=== PATIENT | male | born 1965 | race Caucasian/White ===

== ENCOUNTER 2021-07-30 15:54 | Emergency (ER) | payer BC ==
[2021-07-30] MEDS ORDERED: Zemuron 100 MG/10 ML IV ONE (16:05)
[2021-07-30] MEDS ORDERED: Amidate 20 MG/10 ML IV ONE (16:05)
[2021-07-30] MEDS ORDERED: SUBLIMAZE 100 MCG/2 ML IV ONE (16:05)
[2021-07-30] MEDS ORDERED: VERSED 5 MG/5 ML ONE (16:06)
[2021-07-30] MEDS ORDERED: Sodium Chloride 0.9% 1000 ML 1,000 ML ONE (16:07)
[2021-07-30] MEDS ORDERED: VERSED 5 MG/5 ML IV ONE (16:12)
[2021-07-30] MEDS ORDERED: Versed 50 MG/ 10 Ml MDV*** 50 MG in Sodium Chloride 0.9% 250 ML 240 ML IV PRN (16:13)
[2021-07-30 16:23] VITALS: O2SAT 98
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
[2021-07-30 16:29] VITALS: BP 128/80; PULSE 83
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
--- NOTE | 2021-07-30 19:53 | XRAY ---
Indication: Endotracheal tube placement. Comparison: None Portable chest demonstrates endotracheal tube tip 3 cm above jillian. Lungs inflated and clear. Heart not enlarged. Bony thorax intact with mild osteopenia and degenerative changes.
== END 2021-07-30 16:47 | disposition short-term general hospital (02) ==
LOC: ED 15:54
DX: S02.40FA Zygomatic fracture, left side, initial encounter for closed fracture (principal); S02.40CA Maxillary fracture, right side, initial encounter for closed fracture; S02.40DA Maxillary fracture, left side, initial encounter for closed fracture; S02.19XA Other fracture of base of skull, initial encounter for closed fracture; S02.841A Fracture of lateral orbital wall, right side, initial encounter for closed fracture; S01.01XA Laceration without foreign body of scalp, initial encounter; S06.9X9A Unspecified intracranial injury with loss of consciousness of unspecified duration, initial encounter; R40.2432 Glasgow coma scale score 3-8, at arrival to emergency department; V20.0XXA Motorcycle driver injured in collision with pedestrian or animal in nontraffic accident, initial encounter; Y92.821 Forest as the place of occurrence of the external cause
CPT/HCPCS: 36000; 51702; 70450; 71045; 94799; 96374; 99285; 99291; J2250; J3010

== ENCOUNTER 2022-05-18 11:20 | Observation (INO) | payer BC ==
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
[2022-05-18] MEDS ORDERED: Sodium Chloride 0.9% 1000 ML 1,000 ML IV STA (11:52)
[2022-05-18] MEDS ORDERED: Sodium Chloride 0.9% 1000 ML 1,000 ML ONE (11:58)
--- NOTE | 2022-05-18 12:28 | XRAY ---
Indication: Cough. Comparison: July 30, 2021 Portable chest now hyperinflated and remains clear. Heart not enlarged. Bony thorax intact again with osteopenia and mild degenerative changes. No acute findings.
[2022-05-18 12:35] LABS: Absolute Neutrophil Ct (ANC) 13.08 x10^3/uL (1.4-6.9); BASOPHIL % 0.2 % (0.0-0.4); Basophil (Absolute #) 0.03 x10^3/uL (0-0.4); Eosinophil (Absolute #) 0 x10^3/uL (0-0.5); Hemoglobin 13.6 g/dL (12.5-18.0); IMMATURE GRAN # 0.06 x10^3u/L (0.00-0.03); IMMATURE GRAN % 0.4 % (0.00-0.4); Lymphocyte (Absolute #) 1.17 x10^3/uL (1.0-4.6); Lymphocytes % 7.7 % (24.0-44.0); Mean Cell Volume 91.1 fL (78-100); Mean Corpuscular Hemoglobin 31.8 pg (26-32); Mean Corpuscular Hgb Concent. 34.9 g/dL (32-36); Mean Platelet Volume 10.7 fL (7.5-11.0); Monocyte (Absolute #) 0.84 x10^3/uL (0.0-1.3); Monocytes % 5.5 % (0.0-12.0); Neutrophil % 86.2 % (36.0-66.0); Platelet Count 256 x10^3/uL (150-450); Red Blood Count 4.28 x10^6/uL (4.1-5.6); Red Cell Distribution Width 11.7 % (11.5-14.0); White Blood Count 15.2 x10^3/uL (4.0-10.5)
[2022-05-18 12:53] LABS: ALBUMIN 3.9 g/dL (3.5-5.0); ALKALINE PHOSPHATASE 77 U/L (38-126); ANION GAP 11.1 MEQ/L (5-15); BLOOD UREA NITROGEN 23 mg/dL (9-20); CHLORIDE 90 mmol/L (98-107); Calcium 8.3 mg/dL (8.4-10.2); Carbon Dioxide 27 mmol/L (22-30); Creatinine 1 0.96 mg/dL (0.66-1.25); EST GLOMERULAR FILTRATION RATE > 60.0 ML/MIN; Glucose 112 mg/dL (74-106); Potassium 4.4 mmol/L (3.5-5.1); SGOT/AST 31 U/L (17-59); SGPT/ALT 27 U/L (0-50); SODIUM 124 mmol/L (137-145); Total Protein 7.5 g/dL (6.3-8.2)
[2022-05-18 13:10] LABS: INFLUENZA A NEGATIVE (NEGATIVE); INFLUENZA B NEGATIVE (NEGATIVE); RESPIRATORY SYNCTIAL VIRUS NEGATIVE (Negative); SARS-CoV-2 Xpert Express NEGATIVE (NEGATIVE)
[2022-05-18 13:15] LABS: Appearance Cloudy (Clear); Bacteria None Seen /HPF (None Seen); Bilirubin Small (Negative); Blood Negative (Negative); Glucose, Urine Negative (Negative); Ketones Trace (Negative); Leukocyte Esterase Negative (Negative); Nitrite Negative (Negative); Protein,Urine Dip 300 (Negative); Specific Gravity >=1.030 (1.005-1.030)
[2022-05-18 13:17] LABS: Epithelial Cells Many /HPF (None Seen)
[2022-05-18 13:18] LABS: ADD URINE CULTURE? NO (NO)
[2022-05-18 13:57] LABS: POTASSIUM, URINE RANDOM 77.8 mmol/L
[2022-05-18] MEDS ORDERED: Zofran 4 MG/2 ML VIAL IV PRN (14:36)
[2022-05-18] MEDS ORDERED: TYLENOL 325 MG PO PRN (14:36)
[2022-05-18] MEDS: Ativan 1 MG PO PRN (20:34)
[2022-05-19 05:49] LABS: Absolute Neutrophil Ct (ANC) 10.13 x10^3/uL (1.4-6.9); BASOPHIL % 0.2 % (0.0-0.4); Basophil (Absolute #) 0.02 x10^3/uL (0-0.4); Eosinophil % 0.1 % (0.00-5.0); Eosinophil (Absolute #) 0.01 x10^3/uL (0-0.5); Hematocrit 35.4 % (42-50); Hemoglobin 12.3 g/dL (12.5-18.0); IMMATURE GRAN # 0.05 x10^3u/L (0.00-0.03); IMMATURE GRAN % 0.4 % (0.00-0.4); Lymphocyte (Absolute #) 1.12 x10^3/uL (1.0-4.6); Lymphocytes % 9.2 % (24.0-44.0); Mean Cell Volume 90.1 fL (78-100); Mean Corpuscular Hemoglobin 31.3 pg (26-32); Mean Corpuscular Hgb Concent. 34.7 g/dL (32-36); Mean Platelet Volume 10.9 fL (7.5-11.0); Monocyte (Absolute #) 0.82 x10^3/uL (0.0-1.3); Monocytes % 6.7 % (0.0-12.0); Neutrophil % 83.4 % (36.0-66.0); Platelet Count 252 x10^3/uL (150-450); Red Blood Count 3.93 x10^6/uL (4.1-5.6); Red Cell Distribution Width 11.9 % (11.5-14.0); White Blood Count 12.2 x10^3/uL (4.0-10.5)
[2022-05-19 06:13] LABS: ALBUMIN 3.3 g/dL (3.5-5.0); ALKALINE PHOSPHATASE 68 U/L (38-126); ANION GAP 7.3 MEQ/L (5-15); BLOOD UREA NITROGEN 9 mg/dL (9-20); CHLORIDE 99 mmol/L (98-107); Calcium 8.1 mg/dL (8.4-10.2); Carbon Dioxide 27 mmol/L (22-30); EST GLOMERULAR FILTRATION RATE > 60.0 ML/MIN; Glucose 102 mg/dL (74-106); Potassium 4.2 mmol/L (3.5-5.1); SGOT/AST 21 U/L (17-59); SGPT/ALT 22 U/L (0-50); SODIUM 129 mmol/L (137-145); Total Protein 6.6 g/dL (6.3-8.2)
[2022-05-19] MEDS: Sodium Chloride 0.9% 1000 ML 1,000 ML IV SCH ×2 (07:30→08:35)
[2022-05-19] MEDS: ROCEPHIN 1 Gm-D5w 50 ml Bag** 1 G/50 ML IVPB IV SCH (08:35)
[2022-05-19] MEDS: Ativan 1 MG PO PRN (09:00)
[2022-05-19] MEDS ORDERED: MEDICATION INTERVENTION MC SCH (14:00)
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
--- NOTE | 2022-05-19 14:39 | PCM.NOTE ---
Date and Time: 05/19/221437 Subjective Assessment: doing better - Review of Systems Constitutional: Weakness, No Fever, No Chills Eyes: No Symptoms Ears, Nose, & Throat: No Symptoms Respiratory: No Cough, No Short Of Breath Cardiac: No Chest Pain, No Edema, No Syncope Abdominal/Gastrointestinal: No Abdominal Pain, No Nausea, No Vomiting, No Diarrhea Genitourinary Symptoms: No Dysuria Musculoskeletal: No Back Pain, No Neck Pain Skin: No Rash Neurological: No Dizziness, No Focal Weakness, No Sensory Changes Psychological: No Symptoms Endocrine: No Symptoms Hematologic/Lymphatic: No Symptoms Immunological/Allergic: No Symptoms Objective Exam General Appearance: no apparent distress, alert Neurologic Exam: alert, oriented x 3, cooperative, normal mood/affect, nml cerebellar function, sensation nml, No motor deficits Skin Exam: normal color, warm, dry Eye Exam: PERRL, EOMI, eyes nml inspection Ears, Nose, Throat Exam: normal ENT inspection, pharynx normal, moist mucous membranes Neck Exam: normal inspection, non-tender, supple, full range of motion Respiratory Exam: normal breath sounds, lungs clear, No respiratory distress Cardiovascular Exam: regular rate/rhythm, normal heart sounds Gastrointestinal/Abdomen Exam: soft, No tenderness, No mass Extremity Exam: normal inspection, normal range of motion Back Exam: normal inspection, normal range of motion, No CVA tenderness, No vertebral tenderness Male Genitalia Exam: deferred Rectal Exam: deferred OBJECTIVE DATA Vital Signs: Vital Signs - 24 hr Temp Pulse Resp BP Pulse Ox 05/19/22 14:23 100 H 14 99 05/19/22 12:00 16 05/19/22 11:39 97.9 F 87 16 100/55 95 05/19/22 08:00 99.5 F 85 16 107/61 95 05/19/22 07:57 16 05/19/22 04:00 99.1 F 87 16 96/55 97 05/19/22 00:00 98.5 F 98 H 18 144/71 97 05/18/22 20:00 100.2 F 91 H 17 108/68 96 05/18/22 14:49 98.7 F 84 16 111/60 96 Pain Assessment - Last Documented Pain Intensity 0 Intake and Output: Intake & Output 05/17/22 05/18/22 05/19/22 05/20/22 11:59 11:59 11:59 11:59 Intake Total 1442 360 Output Total 1650 Balance -208 360 Weight 53.977 kg 52.6 kg Lab Results: Lab Results-Last 24 Hours 05/19/22 05/19/22 Range/Units 05:04 05:04 WBC 12.2 H (4.0-10.5) x10^3/uL RBC 3.93 L (4.1-5.6) x10^6/uL Hgb 12.3 L (12.5-18.0) g/dL Hct 35.4 L (42-50) % MCV 90.1 (78-100) fL MCH 31.3 (26-32) pg MCHC 34.7 (32-36) g/dL RDW 11.9 (11.5-14.0) % Plt Count 252 (150-450) x10^3/uL MPV 10.9 (7.5-11.0) fL Gran % 83.4 H (36.0-66.0) % Immature Gran % (Auto) 0.4 (0.00-0.4) % Nucleat RBC Rel Count 0.0 (0.00-0.1) % Eos # (Auto) 0.01 (0-0.5) x10^3/uL Immature Gran # (Auto) 0.05 H (0.00-0.03) x10^3u/L Absolute Lymphs (auto) 1.12 (1.0-4.6) x10^3/uL Absolute Monos (auto) 0.82 (0.0-1.3) x10^3/uL Absolute Nucleated RBC 0.00 (0.00-0.01) x10^3u/L Lymphocytes % 9.2 L (24.0-44.0) % Monocytes % 6.7 (0.0-12.0) % Eosinophils % 0.1 (0.00-5.0) % Basophils % 0.2 (0.0-0.4) % Absolute Granulocytes 10.13 H (1.4-6.9) x10^3/uL Basophils # 0.02 (0-0.4) x10^3/uL Sodium 129 L (137-145) mmol/L Potassium 4.2 (3.5-5.1) mmol/L Chloride 99 (98-107) mmol/L Carbon Dioxide 27 (22-30) mmol/L Anion Gap 7.3 (5-15) MEQ/L BUN 9 (9-20) mg/dL Creatinine 0.60 L (0.66-1.25) mg/dL Estimated GFR > 60.0 ML/MIN Glucose 102 (74-106) mg/dL Calcium 8.1 L (8.4-10.2) mg/dL Total Bilirubin 0.60 (0.2-1.3) mg/dL AST 21 (17-59) U/L ALT 22 (0-50) U/L Alkaline Phosphatase 68 (38-126) U/L Serum Total Protein 6.6 (6.3-8.2) g/dL Albumin 3.3 L (3.5-5.0) g/dL Radiology Exams: Radiology Procedures Category Date Time Status CHEST 1 VIEW (PORTABLE) Stat Exams 05/18/22 11:52 Completed Assessment/Plan (1) Hyponatremia Current Visit: Yes Status: Acute Code(s): E87.1 - HYPO-OSMOLALITY AND HYPONATREMIA (2) Dehydration Current Visit: Yes Status: Resolved Code(s): E86.0 - DEHYDRATION (3) Failure to thrive Current Visit: Yes Status: Chronic Code(s): [id number] - (4) Weakness Current Visit: Yes Status: Acute Code(s): R53.1 - WEAKNESS (5) Weight loss Current Visit: Yes Status: Acute
[2022-05-19] MEDS ORDERED: CEPHALEXIN 500 MG PO SCH (17:00)
[2022-05-19] MEDS ORDERED: NON-FORMULARY ITEM (Lisinopril/Hydrochlorothiazide [Lisinopril-Hctz 10-12.5 Mg Tab] 1 EACH PO SCH (22:00)
[2022-05-20] MEDS: hydroDIURIL 25 MG PO SCH ×2 (02:09→21:15)
[2022-05-20] MEDS: Zestril 10 MG PO SCH ×2 (02:09→21:15)
[2022-05-20 06:07] LABS: Absolute Neutrophil Ct (ANC) 6.92 x10^3/uL (1.4-6.9); BASOPHIL % 0.2 % (0.0-0.4); Basophil (Absolute #) 0.02 x10^3/uL (0-0.4); Eosinophil % 0.3 % (0.00-5.0); Eosinophil (Absolute #) 0.03 x10^3/uL (0-0.5); Hematocrit 33.5 % (42-50); Hemoglobin 11.3 g/dL (12.5-18.0); IMMATURE GRAN # 0.05 x10^3u/L (0.00-0.03); IMMATURE GRAN % 0.5 % (0.00-0.4); Lymphocyte (Absolute #) 1.26 x10^3/uL (1.0-4.6); Lymphocytes % 13.8 % (24.0-44.0); Mean Cell Volume 91.3 fL (78-100); Mean Corpuscular Hemoglobin 30.8 pg (26-32); Mean Corpuscular Hgb Concent. 33.7 g/dL (32-36); Mean Platelet Volume 10.2 fL (7.5-11.0); Monocyte (Absolute #) 0.82 x10^3/uL (0.0-1.3); Neutrophil % 76.2 % (36.0-66.0); Platelet Count 261 x10^3/uL (150-450); Red Blood Count 3.67 x10^6/uL (4.1-5.6); Red Cell Distribution Width 11.9 % (11.5-14.0); White Blood Count 9.1 x10^3/uL (4.0-10.5)
[2022-05-20 06:39] LABS: ANION GAP 4.7 MEQ/L (5-15); BLOOD UREA NITROGEN 6 mg/dL (9-20); CHLORIDE 103 mmol/L (98-107); Calcium 7.8 mg/dL (8.4-10.2); Carbon Dioxide 29 mmol/L (22-30); Creatinine 1 0.48 mg/dL (0.66-1.25); EST GLOMERULAR FILTRATION RATE > 60.0 ML/MIN; Glucose 99 mg/dL (74-106); SODIUM 132 mmol/L (137-145)
[2022-05-20] MEDS: Sodium Chloride 0.9% 1000 ML 1,000 ML IV SCH (06:46)
[2022-05-20] MEDS ORDERED: PATIENT OWN MEDICATION IH SCH (07:00)
[2022-05-20] MEDS: Ativan 1 MG PO PRN ×2 (07:57→17:50)
[2022-05-20] MEDS: ROCEPHIN 1 Gm-D5w 50 ml Bag** 1 G/50 ML IVPB IV SCH (08:28)
[2022-05-20] MEDS ORDERED: Zithromax 500 MG/ 250 ML NaCl Premix 500 MG/250 ML IVPB IV SCH (12:16)
[2022-05-20] MEDS: Acidophilus TABLET PO SCH ×2 (15:19→21:15)
[2022-05-20] MEDS: Merrem 1 GM in Sodium Chloride 100ML MINI-BAG PLUS 100 ML IV SCH ×2 (16:02→21:18)
--- NOTE | 2022-05-20 17:19 | PCM.NOTE ---
Date and Time: 05/20/22 1715 Subjective Assessment: fever last night to 101.6. He has had "chest infection" with cough since about 9 days ago. Was on antibiotic QID (from [facility] in [place]). - Review of Systems Constitutional: Fever Respiratory: Cough Objective Exam General Appearance: no apparent distress, alert, thin Neurologic Exam: oriented x 3, cooperative Skin Exam: normal color, warm, dry, No rash Eye Exam: eyes nml inspection, No scleral icterus Ears, Nose, Throat Exam: moist mucous membranes Neck Exam: normal inspection Respiratory Exam: diminished breath sounds (in RLL. GOod air exchange otherwise.), No crackles/rales, No rhonchi, No wheezing Cardiovascular Exam: regular rate/rhythm, normal heart sounds, No murmur Gastrointestinal/Abdomen Exam: soft, normal bowel sounds, No tenderness, No distention, No mass, No guarding, No rebound Extremity Exam: normal inspection, No pedal edema, No swelling Back Exam: normal inspection, No rash OBJECTIVE DATA Vital Signs: Vital Signs - 24 hr Temp Pulse Resp BP Pulse Ox 05/20/22 08:00 18 05/20/22 07:55 98 F 97 H 18 119/74 98 05/20/22 03:22 97.1 F 74 16 135/69 97 05/19/22 23:18 96.9 F 94 H 16 122/62 95 05/19/22 23:17 97.5 F 87 16 102/55 98 05/19/22 19:55 97.5 F 87 16 102/55 98 Pain Assessment - Last Documented Pain Intensity 0 Pain Scale Used 0-10 Pain Scale Intake and Output: Intake & Output 05/18/22 05/19/22 05/20/22 05/21/22 11:59 11:59 11:59 11:59 Intake Total 1442 3232 1386 Output Total 1650 1475 375 Balance -208 1757 1011 Weight 53.977 kg 52.6 kg 52.7 kg Lab Results: Lab Results-Last 24 Hours 05/20/22 05/20/22 Range/Units 05:50 05:50 WBC 9.1 (4.0-10.5) x10^3/uL RBC 3.67 L (4.1-5.6) x10^6/uL Hgb 11.3 L (12.5-18.0) g/dL Hct 33.5 L (42-50) % MCV 91.3 (78-100) fL MCH 30.8 (26-32) pg MCHC 33.7 (32-36) g/dL RDW 11.9 (11.5-14.0) % Plt Count 261 (150-450) x10^3/uL MPV 10.2 (7.5-11.0) fL Gran % 76.2 H (36.0-66.0) % Immature Gran % (Auto) 0.5 H (0.00-0.4) % Nucleat RBC Rel Count 0.0 (0.00-0.1) % Eos # (Auto) 0.03 (0-0.5) x10^3/uL Immature Gran # (Auto) 0.05 H (0.00-0.03) x10^3u/L Absolute Lymphs (auto) 1.26 (1.0-4.6) x10^3/uL Absolute Monos (auto) 0.82 (0.0-1.3) x10^3/uL Absolute Nucleated RBC 0.00 (0.00-0.01) x10^3u/L Lymphocytes % 13.8 L (24.0-44.0) % Monocytes % 9.0 (0.0-12.0) % Eosinophils % 0.3 (0.00-5.0) % Basophils % 0.2 (0.0-0.4) % Absolute Granulocytes 6.92 H (1.4-6.9) x10^3/uL Basophils # 0.02 (0-0.4) x10^3/uL Sodium 132 L (137-145) mmol/L Potassium 4.0 (3.5-5.1) mmol/L Chloride 103 (98-107) mmol/L Carbon Dioxide 29 (22-30) mmol/L Anion Gap 4.7 L (5-15) MEQ/L BUN 6 L (9-20) mg/dL Creatinine 0.48 L (0.66-1.25) mg/dL Estimated GFR > 60.0 ML/MIN Glucose 99 (74-106) mg/dL Calcium 7.8 L (8.4-10.2) mg/dL Magnesium 2.0 (1.6-2.3) mg/dL Radiology Exams: Radiology Procedures Category Date Time Status CHEST 2 VIEWS (PA AND LAT) Stat Exams 05/20/22 12:18 Taken Assessment/Plan (1) Pneumonia Current Visit: Yes Status: Acute Qualifiers: Pneumonia type: due to unspecified organism Assessment & Plan: Will keep until afebrile for 24 hrs. Changed abx from rocephin to meropenem. Question of consolidation. Code(s): J18.9 - PNEUMONIA, UNSPECIFIED ORGANISM (2) Weakness Current Visit: Yes Status: Acute Code(s): R53.1 - WEAKNESS (3) Failure to thrive Current Visit: Yes Status: Chronic Code(s): [id number] -
[2022-05-20 18:09] LABS: Appearance Clear (Clear); Bacteria None Seen /HPF (None Seen); Bilirubin Negative (Negative); Blood Negative (Negative); Epithelial Cells None Seen /HPF (None Seen); Glucose, Urine Negative (Negative); Hyaline Casts NONE SEEN /LPF (0-2); Ketones Trace (Negative); Leukocyte Esterase Negative (Negative); Nitrite Negative (Negative); Ph 6.5 (4.6-8.0); Protein,Urine Dip Trace (Negative); RBC 0-2 /HPF (0-5); Specific Gravity 1.025 (1.005-1.030); WBC 0-2 /HPF (0-5)
[2022-05-20 18:28] LABS: ADD URINE CULTURE? NO (NO)
--- NOTE | 2022-05-20 20:12 | XRAY ---
Indication: Fever and cough. Comparison: May 18, 2022 PA/lateral chest again hyperinflated with new mild left infrahilar infiltrate/atelectasis without consolidation/large effusion. Remaining heart and lungs unremarkable. Comment: Preliminary interpretation made by [facility]. No critical discrepancy.
[2022-05-21] MEDS: Sodium Chloride 0.9% 1000 ML 1,000 ML IV SCH (00:44)
[2022-05-21] MEDS: Merrem 1 GM in Sodium Chloride 100ML MINI-BAG PLUS 100 ML IV SCH (06:25)
[2022-05-21 06:49] VITALS: PULSE 74
[2022-05-21 07:47] VITALS: BP 117/61; O2SAT 97
[2022-05-21] MEDS: Acidophilus TABLET PO SCH (07:47)
[2022-05-21] MEDS: Ativan 1 MG PO PRN (07:47)
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
== END 2022-05-21 11:18 | disposition home or self-care (01) ==
LOC: ED 11:20 → MED SURG 14:34
PROVIDERS: ADMIT General Practice; ATTEND General Practice
DX: J18.9 Pneumonia, unspecified organism (principal); R53.1 Weakness; R62.7 Adult failure to thrive; I10 Essential (primary) hypertension; E87.1 Hypo-osmolality and hyponatremia; J45.909 Unspecified asthma, uncomplicated; E86.0 Dehydration; R63.4 Abnormal weight loss; Z79.899 Other long term (current) drug therapy; Z20.828 Contact with and (suspected) exposure to other viral communicable diseases
CPT/HCPCS: 0241U; 36000; 36415; 71045; 71046; 80048; 80053; 81001; 83605; 83735; 84133; 84300; 84436; 84443; 85025; 86308; 94760; 96360; 99285; G0378; J0456; J0696; A9270-GY